=== PATIENT | female | born 1930 | race Caucasian/White ===

== ENCOUNTER 2018-01-02 11:55 | Emergency (ER) | payer BC ==
[~2018-01-02] VITALS: Ht 157.5 cm; Wt 53.1 kg
[2018-01-02 12:03] VITALS: BP_SYST 185
[2018-01-02] MEDS ORDERED: NACL 0.9% 1,000 ML IV ONE (12:06)
[2018-01-02 12:25] LABS: BILIRUBIN,URINE NEGATIVE (NEGATIVE); BLOOD, URINE 1+ (NEGATIVE); CLARITY/URINE CLEAR (CLEAR); COLOR,URINE YELLOW (YELLOW); GLUCOSE,URINE NEGATIVE (NEGATIVE); KETONES,URINE NEGATIVE (NEGATIVE); LEUKOCYTE ESTERASE ,URINE NEGATIVE (NEGATIVE); NITRITE, URINE NEGATIVE (NEGATIVE); PH,URINE 7.5 (5.0-8.0); PROTEIN URINE NEGATIVE (NEGATIVE); UROBILINOGEN,URINE 0.2 (0.2-1.0)
[2018-01-02 12:30] LABS: BASOPHILS % (AUTO) 0.7 % (0.0-2.0); EOSINOPHILS # (AUTO) 0.1 K/uL (0.0-0.4); EOSINOPHILS % (AUTO) 1.2 % (0.0-4.0); HEMATOCRIT 40.5 % (36-48); HEMOGLOBIN 13.7 g/dL (12.0-16.0); LYMPHOCYTES # (AUTO) 1.5 K/uL (1.0-5.5); LYMPHOCYTES % (AUTO) 26.4 % (20.5-51.5); MEAN CORPUSCULAR HEMOGLOBIN 31 pg (27-31); MEAN CORPUSCULAR HGB CONC 34 % (32-36); MEAN CORPUSCULAR VOLUME 93 fL (79.0-98.0); MONOCYTES # (AUTO) 0.3 K/uL (0.0-1.0); NEUTROPHILS % (AUTO) 66.7 % (40.0-70.0); PLATELET COUNT (AUTO) 291 K/uL (130-430); RED BLOOD CELL COUNT(AUTO) 4.37 MIL/uL (4.2-6.2); RED CELL DISTRIBUTION WIDTH 12.1 % (9.0-15.0); WHITE BLOOD COUNT (AUTO) 5.9 K/uL (4.8-10.8)
[2018-01-02 12:48] LABS: INR 0.9 (0.8-1.2); PROTHROMBIN TIME 9.5 SECS (9.5-12.5)
[2018-01-02 12:55] LABS: ALANINE AMINOTRANSFERASE 18 U/L (12-78); ALBUMIN 3.9 g/dL (3.4-4.8); AMYLASE 49 U/L (0-100); ANION GAP 5 (5-15); ASPARTATE AMINOTRANSFERASE 26 U/L (10-37); CALCIUM 8.5 mg/dL (8.4-11.0); CHLORIDE 101 mmol/L (98-107); CREATININE 0.83 mg/dL (0.55-1.30); GLUCOSE 113 mg/dL (70-99); LIPASE 192 U/L (73-393); POTASSIUM 3.9 mmol/L (3.5-5.1); SODIUM SERUM 136 mmol/L (136-145); TOTAL BILIRUBIN 0.6 mg/dL (0.0-1.0); UREA NITROGEN, BLOOD 11 mg/dL (8-21)
[2018-01-02 13:35] VITALS: BP_SYST 150
[2018-01-02 13:38] LABS: BACTERIA,URINE RARE /HPF (None Seen); WBC,URINE 0-3 /HPF (0-3)
== END 2018-01-02 13:35 | disposition home or self-care (01) ==
LOC: SED 11:55
DX: N30.91 Cystitis, unspecified with hematuria (principal); R53.1 Weakness; R03.0 Elevated blood-pressure reading, without diagnosis of hypertension; Z90.49 Acquired absence of other specified parts of digestive tract; Z88.5 Allergy status to narcotic agent; Z88.6 Allergy status to analgesic agent
CPT/HCPCS: 36415; 71045; 80053; 81000; 82150; 82550; 83690; 84484; 85025; 85610; 85730; 93005; 96360; 99285; J7030

== ENCOUNTER 2018-07-16 17:23 | Emergency (ER) | payer BC ==
[~2018-07-16] VITALS: Ht 157.5 cm; Wt 51.7 kg
--- NOTE | 2018-07-16 17:25 | NUR ---
Patient to ER bed 05 to gown for evaluation. Side rails up.
--- NOTE | 2018-07-16 17:36 | NUR ---
Pt brought by self, A&Ox4, pt presents to ER with high blood pressure in the last couple days, 162/67. pt denies pain, denies SOB, afebrile, pt amble to ambulate, speaking in full sentences.
[2018-07-16 17:37] VITALS: BP_SYST 163
--- NOTE | 2018-07-16 17:38 | NUR ---
Dr Juarez at bedside examining patient
--- NOTE | 2018-07-16 17:50 | NUR ---
Patient given written and verbal discharge instructions and verbalizes understanding. ER MD discussed with patient the results and treatment provided. Patient in stable condition. ID arm band removed. No Rx given. Patient educated on pain management and to follow up with PMD. Pain Scale 0/10 . Opportunity for questions provided and answered. Medication side effect fact sheet provided.
== END 2018-07-16 17:55 | disposition home or self-care (01) ==
LOC: SED 17:23
DX: I10 Essential (primary) hypertension (principal); E78.00 Pure hypercholesterolemia, unspecified; Z88.5 Allergy status to narcotic agent; Z88.6 Allergy status to analgesic agent
CPT/HCPCS: 99281

== ENCOUNTER 2018-09-10 12:17 | Emergency (ER) | payer BC ==
[~2018-09-10] VITALS: Ht 157.5 cm; Wt 51.7 kg
--- NOTE | 2018-09-10 12:17 | NUR ---
Placed in room 02 . Placed on environmental monitoring technician, blood pressure machine and pulse oximeter. To gown for exam. Side rails up. Report given to CARLEY GARCIA.
[2018-09-10 12:24] VITALS: BP_SYST 122
--- NOTE | 2018-09-10 12:52 | NUR ---
Patient is awake, alert, and oriented x4. Patient states she was gardening outside of her home and started feeling "fuzzy" and her vision went dark, patient states it has happened before 1 year ago. Patient reports a change in her blood pressure medication about 3 weeks to 1 month ago. Patient reports a history of hypertension, hysterectomy, cholecystectomy.
--- NOTE | 2018-09-10 12:56 | NUR ---
ER Dr. Santos at bedside examining patient.
--- NOTE | 2018-09-10 13:18 | NUR ---
Patient transported to radiology via gurney, accompanied by senior quality control technician.
--- NOTE | 2018-09-10 13:28 | NUR ---
Returned from radiology, back to [facility].
[2018-09-10 13:57] LABS: ANION GAP 6 (5-15); CALCIUM 8.9 mg/dL (8.4-11.0); CHLORIDE 100 mmol/L (98-107); CREATININE 0.84 mg/dL (0.55-1.30); GLUCOSE 91 mg/dL (70-99); POTASSIUM 4.8 mmol/L (3.5-5.1); SODIUM SERUM 135 mmol/L (136-145); UREA NITROGEN, BLOOD 19 mg/dL (8-21)
[2018-09-10 14:00] LABS: HEMOGLOBIN 12.8 g/dL (12.0-16.0); MEAN CORPUSCULAR HEMOGLOBIN 31 pg (27-31); MEAN CORPUSCULAR HGB CONC 34 % (32-36); MEAN CORPUSCULAR VOLUME 93 fL (79.0-98.0); RED BLOOD CELL COUNT(AUTO) 4.08 MIL/uL (4.2-6.2); WHITE BLOOD COUNT (AUTO) 7.2 K/uL (4.8-10.8)
[2018-09-10 14:01] LABS: BASOPHILS % (AUTO) 0.4 % (0.0-2.0); EOSINOPHILS # (AUTO) 0.1 K/uL (0.0-0.4); EOSINOPHILS % (AUTO) 0.8 % (0.0-4.0); LYMPHOCYTES # (AUTO) 1.4 K/uL (1.0-5.5); LYMPHOCYTES % (AUTO) 19.6 % (20.5-51.5); MONOCYTES # (AUTO) 0.5 K/uL (0.0-1.0); MONOCYTES % (AUTO) 6.4 % (1.7-9.3); NEUTROPHILS # (AUTO) 5.2 K/uL (1.8-7.7); NEUTROPHILS % (AUTO) 72.8 % (40.0-70.0); PLATELET COUNT (AUTO) 247 K/uL (130-430)
[2018-09-10 14:02] LABS: INR 0.9 (0.8-1.2); PROTHROMBIN TIME 9.7 SECS (9.5-12.5)
[2018-09-10 14:03] LABS: ALANINE AMINOTRANSFERASE 16 U/L (12-78); ALBUMIN 3.4 g/dL (3.4-4.8); ASPARTATE AMINOTRANSFERASE 19 U/L (10-37); TOTAL BILIRUBIN 0.8 mg/dL (0.0-1.0)
[2018-09-10 14:22] LABS: ALCOHOL, BLOOD < 3 mg/dL (<10)
[2018-09-10 15:05] LABS: BARBITURATE, URINE NEGATIVE (NEG <=200); BENZODIAZEPINE, URINE NEGATIVE (NEG <=150); CANNABINOID, URINE NEGATIVE (NEG <=50); COCAINE, URINE NEGATIVE (NEG <=150); METHAMPHETAMINES SCREEN,URINE NEGATIVE (NEG <=500); OPIATE, URINE NEGATIVE (NEG <=100); PHENCYCLIDINE SCREEN,URINE NEGATIVE (NEG <=25); UR TRICYCLIC ANTIDEPRESSANTS NEGATIVE (NEG <=300); URINE AMPHETAMINE NEGATIVE (NEG <=500); URINE METHADONE NEGATIVE (NEG <=200); URINE OXYCODONE SCREEN NEGATIVE (NEG <=100); URINE PROPOXYPHENE SCREEN NEGATIVE (NEG <=300)
[2018-09-10 15:10] LABS: BILIRUBIN,URINE NEGATIVE (NEGATIVE); BLOOD, URINE TRACE (NEGATIVE); CLARITY/URINE CLEAR (CLEAR); COLOR,URINE YELLOW (YELLOW); GLUCOSE,URINE NEGATIVE (NEGATIVE); KETONES,URINE NEGATIVE (NEGATIVE); LEUKOCYTE ESTERASE ,URINE NEGATIVE (NEGATIVE); NITRITE, URINE NEGATIVE (NEGATIVE); PROTEIN URINE NEGATIVE (NEGATIVE); UROBILINOGEN,URINE 0.2 (0.2-1.0)
[2018-09-10 15:11] LABS: BACTERIA,URINE FEW /HPF (None Seen); MUCUS,URINE None Seen /LPF (None Seen); RBC,URINE 0-3 /HPF (0-3); WBC,URINE 0-3 /HPF (0-3)
[2018-09-10 17:30] VITALS: BP_SYST 154
--- NOTE | 2018-09-10 17:30 | NUR ---
Patient given written and verbal discharge instructions and verbalizes understanding. ER MD discussed with patient the results and treatment provided. Patient in stable condition. ID arm band removed.Patient educated on pain management and to follow up with PMD. Pain Scale 0/10. Opportunity for questions provided and answered. Medication side effect fact sheet provided.
== END 2018-09-10 17:30 | disposition home or self-care (01) ==
LOC: SED 12:17
DX: R55 Syncope and collapse (principal); E78.00 Pure hypercholesterolemia, unspecified; R03.0 Elevated blood-pressure reading, without diagnosis of hypertension; Z88.5 Allergy status to narcotic agent; Z88.6 Allergy status to analgesic agent
CPT/HCPCS: 36415; 70450; 71045; 80053; 80307; 81000; 84484; 85025; 85610; 85730; 93005; 99284; G0482

== ENCOUNTER 2020-02-14 11:04 | Emergency (ER) | payer BC ==
[~2020-02-14] VITALS: Ht 157.5 cm; Wt 51.7 kg
--- NOTE | 2020-02-14 11:13 | NUR ---
ER Dr. ASCENCIO at bedside examining patient.
--- NOTE | 2020-02-14 11:13 | NUR ---
Patient to ER bed 04 to gown for evaluation. Side rails up.
[2020-02-14 11:15] VITALS: BP_SYST 161
--- NOTE | 2020-02-14 11:20 | NUR ---
PT TO [facility]IE C/O PAIN TO RIGHT SHOULDER. PT STATED THAT SHE WAS TRYING TO SWAT A BUG WITH A BROOM AND SLIPPED ON AND FELL ON A ROCK, HITTING HER RIGHT SHOULDER.
[2020-02-14] MEDS ORDERED: KETOROLAC TROMETHAMINE 60 MG/2 ML VIAL IM ONE (11:45)
--- NOTE | 2020-02-14 12:01 | NUR ---
pt in [facility] with side rails up. recieved medication for pain as ordered.
--- NOTE | 2020-02-14 12:18 | NUR ---
Pt continues to C/O pain. Provider made aware. Medicated as ordered. Sling applied to right arm.
[2020-02-14] MEDS ORDERED: MORPHINE 4 MG/ML INJ. SYRINGE IM ONE (12:30)
[2020-02-14 12:44] VITALS: BP_SYST 152
--- NOTE | 2020-02-14 12:45 | NUR ---
Patient given written and verbal discharge instructions and verbalizes understanding. ER MD discussed with patient the results and treatment provided. Patient in stable condition. ID arm band removed. Rx of Naprosyn given. Patient educated on pain management and to follow up with PMD. Pain Scale 3/10 tolerable for patient Opportunity for questions provided and answered. Medication side effect fact sheet provided.
== END 2020-02-14 12:45 | disposition home or self-care (01) ==
LOC: SED 11:04
DX: S42.291A Other displaced fracture of upper end of right humerus, initial encounter for closed fracture (principal); E78.00 Pure hypercholesterolemia, unspecified; Z88.5 Allergy status to narcotic agent; Z88.6 Allergy status to analgesic agent; W01.0XXA Fall on same level from slipping, tripping and stumbling without subsequent striking against object, initial encounter; Y93.89 Activity, other specified; Y92.89 Other specified places as the place of occurrence of the external cause; Y99.8 Other external cause status
CPT/HCPCS: 73020; 96372; 99284; J1885; J2270

== ENCOUNTER 2020-02-25 10:08 | Observation (INO) | payer BC ==
[~2020-02-25] VITALS: Ht 157.5 cm; Wt 53.5 kg
--- NOTE | 2020-02-25 10:08 | NUR ---
Patient to ER bed 3 to gown for evaluation. Side rails up.
--- NOTE | 2020-02-25 10:09 | NUR ---
BILLY Vizcarra at bedside examining patient.
[2020-02-25] MEDS ORDERED: NACL 0.9% 1,000 ML IV ONE (10:15)
--- NOTE | 2020-02-25 10:35 | NUR ---
pt to tyrel at bed 3. alert and oriented. able to make needs known. Pt states that she had surgery yesterday to right shoulder at [facility].
--- NOTE | 2020-02-25 10:36 | NUR ---
# 22 gauge angiocath placed to left arm. Use of asceptic technique. Opsite placed over site. Blood return noted. Blood for lab drawn from site. Flushed with 10 cc of normal saline. No evidence of infiltration noted. Patient tolerated well.
[2020-02-25 10:37] VITALS: BP_SYST 146
[2020-02-25 10:44] LABS: BASOPHILS % (AUTO) 0.3 % (0.0-2.0); EOSINOPHILS # (AUTO) 0.1 K/uL (0.0-0.4); EOSINOPHILS % (AUTO) 0.4 % (0.0-4.0); HEMATOCRIT 28.5 % (36-48); HEMOGLOBIN 9.6 g/dL (12.0-16.0); LYMPHOCYTES # (AUTO) 0.9 K/uL (1.0-5.5); LYMPHOCYTES % (AUTO) 6.1 % (20.5-51.5); MEAN CORPUSCULAR HEMOGLOBIN 30 pg (27-31); MEAN CORPUSCULAR HGB CONC 34 % (32-36); MEAN CORPUSCULAR VOLUME 90 fL (79.0-98.0); MONOCYTES # (AUTO) 0.8 K/uL (0.0-1.0); MONOCYTES % (AUTO) 5.5 % (1.7-9.3); NEUTROPHILS # (AUTO) 12.8 K/uL (1.8-7.7); NEUTROPHILS % (AUTO) 87.7 % (40.0-70.0); PLATELET COUNT (AUTO) 332 K/uL (130-430); RED BLOOD CELL COUNT(AUTO) 3.17 MIL/uL (4.2-6.2); RED CELL DISTRIBUTION WIDTH 14.9 % (9.0-15.0); WHITE BLOOD COUNT (AUTO) 14.6 K/uL (4.8-10.8)
[2020-02-25 10:58] LABS: ANION GAP 11 (5-15); CALCIUM 8.5 mg/dL (8.4-11.0); CHLORIDE 91 mmol/L (98-107); CREATININE 0.59 mg/dL (0.55-1.30); GLUCOSE 118 mg/dL (70-99); POTASSIUM 3.4 mmol/L (3.5-5.1); SODIUM SERUM 126 mmol/L (136-145); UREA NITROGEN, BLOOD 18 mg/dL (8-21)
[2020-02-25 11:05] LABS: ALANINE AMINOTRANSFERASE 18 U/L (12-78); ALBUMIN 2.7 g/dL (3.4-4.8); ASPARTATE AMINOTRANSFERASE 27 U/L (10-37); TOTAL BILIRUBIN 1.5 mg/dL (0.0-1.0)
[2020-02-25] MEDS ORDERED: NS 500 ML IV ONE (11:30)
--- NOTE | 2020-02-25 11:31 | NUR ---
pt tolerated 240ml of ensure. denies nausea and no vomiting. ivf continued.
[2020-02-25 11:43] LABS: BILIRUBIN,URINE NEGATIVE (NEGATIVE); BLOOD, URINE 1+ (NEGATIVE); CLARITY/URINE CLEAR (CLEAR); COLOR,URINE YELLOW (YELLOW); GLUCOSE,URINE NEGATIVE (NEGATIVE); KETONES,URINE 1+ (NEGATIVE); LEUKOCYTE ESTERASE ,URINE NEGATIVE (NEGATIVE); NITRITE, URINE NEGATIVE (NEGATIVE); PROTEIN URINE TRACE (NEGATIVE)
[2020-02-25 11:52] LABS: BACTERIA,URINE RARE /HPF (None Seen); RBC,URINE 0-3 /HPF (0-3); WBC,URINE 0-3 /HPF (0-3)
[2020-02-25 11:53] LABS: MUCUS,URINE 1+ /LPF (None Seen)
--- NOTE | 2020-02-25 12:34 | NUR ---
Pt is alert and oriented. VSS
[2020-02-25 12:58] LABS: ANION GAP 7 (5-15); CALCIUM 7.5 mg/dL (8.4-11.0); CHLORIDE 98 mmol/L (98-107); CREATININE 0.58 mg/dL (0.55-1.30); GLUCOSE 156 mg/dL (70-99); POTASSIUM 3.1 mmol/L (3.5-5.1); SODIUM SERUM 128 mmol/L (136-145); UREA NITROGEN, BLOOD 18 mg/dL (8-21)
[2020-02-25] MEDS ORDERED: POTASSIUM CHLORIDE 20 MEQ TAB.PRT.SR PO ONE (13:00)
--- NOTE | 2020-02-25 14:35 | NUR ---
ADMIT NOTE Received pt from ER to the floor with a diagnosis of Generalized Weakness. Admission process initiated. Plan of care reviewed with patient-she verbalized her understanding. Patient's right shoulder elevated on pillow. Patient given vanilla ice cream per request. Patient oriented to pain management, safety and call light-teach back done.
--- NOTE | 2020-02-25 14:54 | NUR ---
Patient will be admitted to care of [facility]ie. Admitted to ms unit. Will go to room 113B. Belongings list completed. Complete and up to date summary report printed. SBAR report to be given at bedside with opportunity for questions.
[2020-02-25] MEDS: D5NS 1,000 ML IV SCH (15:35)
[2020-02-25 15:41] VITALS: BP_SYST 134
[2020-02-25] MEDS ORDERED: METO50TA7 PO (16:54)
[2020-02-25 17:00] VITALS: BP_SYST 128
--- NOTE | 2020-02-25 17:05 | NUR ---
ROUNDS Pt assisted to the bathroom with slow gait, pt voided, pt assisted back into bed. Pt's right shoulder/arm elevated on a pillow and ice pack placed on right shoulder. Pt declined Tylenol at this time. Side rails up x3, bed alarm on and room across from nursing station. Call light within reach.
--- NOTE | 2020-02-25 19:10 | NUR ---
CLOSING NOTE Pt resting quietly in bed with no s/s resp distress, no c/o pain or discomfort. Ice to right shoulder and right shoulder elevated on pillow. IVF infusing well to LFA at ordered rate with no s/s infiltration to site. All precautions remain in place. Call light within reach.
--- NOTE | 2020-02-25 19:45 | NUR ---
INITIAL NOTE PT AWAKE, RESTING IN BED. PT DENIES ANY PAIN AT THIS TIME. PT HAS RIGHT SHOULDER SLING, SECURED. IVF INFUSING WELL. EDUCATE PT ON SAFETY AND USE OF CALL LIGHT. PT VERBALIZED UNDERSTANDING AND DEMONSTRATED TEACH BACK. CALL LIGHT WITHIN REACH, BED IN LOW AND LOCKED POSITION WITH BED ALARM ON.
[2020-02-25 20:00] VITALS: BP_SYST 143
--- NOTE | 2020-02-25 21:49 | NUR ---
INDIGESTION/DR. BAXTER PT COMPLAINING OF STOMACH PAIN, PT STATES THAT SHE GETS THIS PAIN WHEN SHE DOES NOT EAT WELL. OFFERED PT ORAL INTAKE, SUCH APPLE SAUCE. PT REFUSING AT THIS TIME. PT REQUESTING FOR TUMS. JESUS BRIZUELA AT THIS TIME, SPOKE WITH MD VIA PHONE, RECEIVED ORDERS FOR TUMS PRN. WILL CARRY OUT.
[2020-02-25] MEDS: CALCIUM CARBONATE 500 MG/ TAB.CHEW PO PRN (22:03)
--- NOTE | 2020-02-25 22:03 | NUR ---
TUMS/ENSURE TUMS ADMINISTERED AT THIS TIME. PT REQUESTING FOR VANILLA ENSURE WHICH WAS PROVIDED. WILL CONTINUE TO MONITOR.
[2020-02-26 00:09] VITALS: BP_SYST 132
--- NOTE | 2020-02-26 00:55 | NUR ---
RN ROUNDS PT RESTING QUIETLY IN BED, NO ACUTE DISTRESS NOTED, BREATHING EVEN AND UNLABORED. WILL CONTINUE TO MONITOR.
[2020-02-26] MEDS: D5NS 1,000 ML IV SCH ×2 (02:36→14:23)
--- NOTE | 2020-02-26 03:01 | NUR ---
RN ROUNDS PT RESTING QUIETLY IN BED, NO ACUTE DISTRESS NOTED, BREATHING EVEN AND UNLABORED. WILL CONTINUE TO MONITOR.
[2020-02-26] MEDS: CALCIUM CARBONATE 500 MG/ TAB.CHEW PO PRN (06:03)
--- NOTE | 2020-02-26 06:17 | NUR ---
CLOSING NOTE PT COMPLAINING OF INDIGESTION. PRN TUMS ADMINISTERED TO PT. IVF INFUSING WELL. CALL LIGHT WITHIN REACH, BED IN LOW AND LOCKED POSITION WITH BED ALARM ON. ALL NEEDS MET THROUGHOUT SHIFT. WILL CONTINUE TO MONITOR UNTIL PT CARE IS ENDORSED TO MORNING SHIFT RN.
[2020-02-26 06:27] LABS: BASOPHILS % (AUTO) 0.2 % (0.0-2.0); EOSINOPHILS # (AUTO) 0.1 K/uL (0.0-0.4); EOSINOPHILS % (AUTO) 0.7 % (0.0-4.0); HEMATOCRIT 24.9 % (36-48); HEMOGLOBIN 8.5 g/dL (12.0-16.0); LYMPHOCYTES # (AUTO) 0.9 K/uL (1.0-5.5); LYMPHOCYTES % (AUTO) 7.5 % (20.5-51.5); MEAN CORPUSCULAR HEMOGLOBIN 30 pg (27-31); MEAN CORPUSCULAR HGB CONC 34 % (32-36); MEAN CORPUSCULAR VOLUME 89 fL (79.0-98.0); MONOCYTES # (AUTO) 0.7 K/uL (0.0-1.0); MONOCYTES % (AUTO) 6.1 % (1.7-9.3); NEUTROPHILS # (AUTO) 10.1 K/uL (1.8-7.7); NEUTROPHILS % (AUTO) 85.5 % (40.0-70.0); PLATELET COUNT (AUTO) 304 K/uL (130-430); RED BLOOD CELL COUNT(AUTO) 2.79 MIL/uL (4.2-6.2); WHITE BLOOD COUNT (AUTO) 11.9 K/uL (4.8-10.8)
--- NOTE | 2020-02-26 07:06 | NUR ---
Nutrition Update Zheng scale 18 noted. Pt admitted for Generalized Weakness Diet: Regular BMI: 21.6 kg/m2 RD to follow per nutrition care standards.
[2020-02-26 07:24] LABS: ALANINE AMINOTRANSFERASE 15 U/L (12-78); ALBUMIN 2.3 g/dL (3.4-4.8); ANION GAP 6 (5-15); ASPARTATE AMINOTRANSFERASE 23 U/L (10-37); CALCIUM 7.9 mg/dL (8.4-11.0); CHLORIDE 97 mmol/L (98-107); CREATININE 0.53 mg/dL (0.55-1.30); GLUCOSE 117 mg/dL (70-99); POTASSIUM 3.1 mmol/L (3.5-5.1); SODIUM SERUM 130 mmol/L (136-145); TOTAL BILIRUBIN 1.2 mg/dL (0.0-1.0); UREA NITROGEN, BLOOD 10 mg/dL (8-21)
--- NOTE | 2020-02-26 07:30 | NUR ---
Opening Note Report received from NOC RN. Patient in bed, A/Ox4, reports minor pain to the right arm at this time s/p shoulder surgery. Bed is in low and locked position, side rails up x2, call light within reach, no complaints at this time.
[2020-02-26 08:00] VITALS: BP_SYST 129
[2020-02-26] MEDS ORDERED: POTASSIUM CHLORIDE 20 MEQ/PKT PACKET PO ONE (10:15)
[2020-02-26 11:32] VITALS: BP_SYST 131
--- NOTE | 2020-02-26 12:00 | NUR ---
Lunch Patient moved from gurney to chair with minor assistance. Call light within reach.
--- NOTE | 2020-02-26 15:19 | NUR ---
PAGED PAGED ESA WARD AT [phone] SPOKE WITH AVRIL,.
--- NOTE | 2020-02-26 15:30 | NUR ---
Physical Therapy PT at bedside, patient ambulatory with steady gait and moderate assist.
[2020-02-26 15:41] VITALS: BP_SYST 148
--- NOTE | 2020-02-26 16:20 | NUR ---
PAGED PAGED ESA WARD AT [phone] SPOKE WITH LUZMA.
[2020-02-26 16:37] VITALS: BP_SYST 126
--- NOTE | 2020-02-26 16:43 | NUR ---
HCP/[facility] Spoke with HCP Ticker Wirer, , [place], about patient requiring home health. Per CM, patient already scheduled for home health and safe to discharge.
--- NOTE | 2020-02-26 16:54 | NUR ---
P.T. NOTES P.T. EVAL COMPLETED; REFER TO EVAL FOR DETAILS; WILL BENEFIT W/ P.T. POST ACUTE STAY, WIDE BASED QUAD CANE FOR HOME USE.
--- NOTE | 2020-02-26 17:37 | NUR ---
Discharge Patient discharged with all of her belongings in her possession. Patient's peripheral IV taken out. Patient escorted out of hospital via wheelchair. Patient's family picking her up and taking her home.
--- NOTE | 2020-02-29 13:50 | NUR ---
Discharge Follow Up Phone Call Phoned patient, , and spoke with patient's granddaughter. She stated that patient is doing well. Patient attended her follow up appointment with her PCP. A home health [facility] has made contact and will begin PT services today. No questions or concerns.
== END 2020-02-26 17:50 | disposition home or self-care (01) ==
LOC: SED 10:08 → SMU 13:20 → STU 02-26 10:10
PROVIDERS: ADMIT Internal Medicine Hospice and Palliative Medicine; ATTEND Internal Medicine Hospice and Palliative Medicine
DX: R53.1 Weakness (principal); R11.2 Nausea with vomiting, unspecified; E87.1 Hypo-osmolality and hyponatremia; E87.6 Hypokalemia; D72.829 Elevated white blood cell count, unspecified; I10 Essential (primary) hypertension; D64.9 Anemia, unspecified; Z96.612 Presence of left artificial shoulder joint
CPT/HCPCS: 36415 ×2; 71045; 80048; 80053 ×2; 81000; 82533; 83605; 84443; 84484 ×2; 85025 ×2; 87040; 87081; 87086; 93005; 93306; 96360; 96361 ×3; 97112; 97162; 99285; G0378; J7030; J7040; J7042 ×2

== ENCOUNTER 2020-04-06 12:09 | Emergency (ER) | payer BC ==
[~2020-04-06] VITALS: Ht 149.9 cm; Wt 46.7 kg
[~2020-04-06 12:09] MED LIST: METO50TA7 PO
[2020-04-06 12:13] VITALS: BP_SYST 147
[2020-04-06 12:46] LABS: BASOPHILS % (AUTO) 0.6 % (0.0-2.0); EOSINOPHILS % (AUTO) 0.4 % (0.0-4.0); HEMATOCRIT 31.7 % (36-48); HEMOGLOBIN 10.8 g/dL (12.0-16.0); LYMPHOCYTES # (AUTO) 0.9 K/uL (1.0-5.5); LYMPHOCYTES % (AUTO) 13.5 % (20.5-51.5); MEAN CORPUSCULAR HEMOGLOBIN 31 pg (27-31); MEAN CORPUSCULAR HGB CONC 34 % (32-36); MEAN CORPUSCULAR VOLUME 90 fL (79.0-98.0); MONOCYTES # (AUTO) 0.4 K/uL (0.0-1.0); MONOCYTES % (AUTO) 5.7 % (1.7-9.3); NEUTROPHILS # (AUTO) 5.4 K/uL (1.8-7.7); NEUTROPHILS % (AUTO) 79.8 % (40.0-70.0); PLATELET COUNT (AUTO) 269 K/uL (130-430); RED BLOOD CELL COUNT(AUTO) 3.52 MIL/uL (4.2-6.2); WHITE BLOOD COUNT (AUTO) 6.7 K/uL (4.8-10.8)
[2020-04-06 12:59] LABS: ANION GAP 5 (5-15); CALCIUM 8.6 mg/dL (8.4-11.0); CHLORIDE 99 mmol/L (98-107); CREATININE 0.91 mg/dL (0.55-1.30); GLUCOSE 122 mg/dL (70-99); POTASSIUM 3.9 mmol/L (3.5-5.1); SODIUM SERUM 129 mmol/L (136-145); UREA NITROGEN, BLOOD 17 mg/dL (8-21)
[2020-04-06 13:04] LABS: ALANINE AMINOTRANSFERASE 17 U/L (12-78); ASPARTATE AMINOTRANSFERASE 21 U/L (10-37); TOTAL BILIRUBIN 0.4 mg/dL (0.0-1.0)
[2020-04-06 13:19] LABS: PROTHROMBIN TIME 9.9 SECS (9.5-12.5)
[2020-04-06 17:56] VITALS: BP_SYST 149
== END 2020-04-06 17:56 | disposition home or self-care (01) ==
LOC: SED 12:09
DX: E87.1 Hypo-osmolality and hyponatremia (principal); R53.1 Weakness; E78.00 Pure hypercholesterolemia, unspecified; I10 Essential (primary) hypertension; Z88.6 Allergy status to analgesic agent
CPT/HCPCS: 36415; 70450-TC; 71045; 80053; 84484; 85025; 85610-TC; 85730-TC; 93005; 99285